=== PATIENT | female | born 1990 | race African-American/Black ===

== ENCOUNTER 2019-11-26 12:49 | Inpatient (IN) | payer MEDICAID ==
[~2019-11-26] VITALS: Ht 160 cm; Wt 78.5 kg
[2019-11-26] MEDS ORDERED: FERR325T6 PO (13:26)
[2019-11-26] MEDS ORDERED: PREN1TAB23 PO (13:26)
[2019-11-26] MEDS ORDERED: DEXT 5%/LR + PITOCIN 20UNITS/L 1,000 ML IV SCH (14:34)
[2019-11-26] MEDS ORDERED: MISOPROSTOL 100MCG TABLET VG SCH (14:45)
[2019-11-26] MEDS ORDERED: BUTORPHANOL TARTRATE 2 MG/ML VIAL IV PRN (14:45)
[2019-11-26] MEDS ORDERED: LIDOCAINE HCL 1% 20ML VIAL (Pyxis) INJ INFIL SCH (14:45)
[2019-11-26] MEDS ORDERED: NALOXONE HCL 0.4 MG/ML 1ML VIAL IM PRN (14:45)
[2019-11-26] MEDS ORDERED: PENICILLIN G POTASSIUM 2.5 MMU in DEXTROSE 5% WATER 50 ML IV SCH (15:00)
[2019-11-26] MEDS: LACTATED RINGERS 1,000 ML IV SCH ×3 (15:08→20:14)
[2019-11-26] MEDS ORDERED: PENICILLIN G POTASSIUM 5 MMU in DEXT 5% WATER 100 ML IV SCH (15:30)
[2019-11-26 15:33] LABS: CLARITY URINE CLOUDY (CLEAR); COLOR URINE YELLOW (YELLOW); KETONES URINE NEGATIVE (NEGATIVE); LEUKOCYTE ESTERASE URINE 3+ (NEGATIVE); NITRITE URINE NEGATIVE (NEGATIVE); OCCULT BLOOD URINE 1+ (NEGATIVE); PH URINE 8.5 (4.5-8.0); PROTEIN URINE TRACE (NEGATIVE); SPECIFIC GRAVITY URINE 1.016 (1.005-1.030)
[2019-11-26 15:38] LABS: HEMATOCRIT. 37.4 % (36.0-48.0); HEMOGLOBIN. 12.2 g/dL (12.0-16.0); MEAN CORPUSCULAR HEMOGLOBIN 28.7 pg (28.0-32.0); MEAN PLATELET VOLUME 9.6 fl (7.4-10.4); PLATELET 164 x1000/uL (130-400); RED BLOOD CELL COUNT 4.25 mill/uL (4.2-5.4); RED CELL DISTRIBUTION WIDTH 13.6 % (11.6-14.6)
[2019-11-26 15:44] LABS: INR 0.9; PARTIAL THROMBOPLASTIN TIME 28.2 sec (23.4-31.0); PROTHROMBIN TIME 9.8 sec (9.6-11.0)
[2019-11-26 15:59] LABS: *AMPHETAMINES SCREEN URINE NEGATIVE (NEGATIVE); *BARBITURATES SCREEN URINE NEGATIVE (NEGATIVE); *BENZODIAZEPINES SCREEN URINE NEGATIVE (NEGATIVE)
[2019-11-26 16:00] LABS: *COCAINE SCREEN URINE NEGATIVE (NEGATIVE); CANNABINOID URINE SCREEN NEGATIVE (NEGATIVE); METHADONE URINE SCREEN NEGATIVE (NEGATIVE); OPIATES URINE SCREEN NEGATIVE (NEGATIVE); PHENCYCLIDINE URINE SCREEN NEGATIVE (NEGATIVE)
[2019-11-26 16:26] LABS: PLATELET ESTIMATE NORMAL
[2019-11-26 16:32] LABS: HEPATITIS B SURFACE ANTIGEN NEGATIVE
[2019-11-26] MEDS ORDERED: ROPIVACAINE HCL/PF EPIDURAL 200 ML EPI SCH (19:33)
[2019-11-27] MEDS ORDERED: HEMORRHOIDAL SUPP PR PRN
[2019-11-27] MEDS ORDERED: IBUPROFEN 400MG TABLET PO PRN
[2019-11-27] MEDS ORDERED: BISACODYL 10MG SUPP PR PRN
[2019-11-27] MEDS ORDERED: GLYCERIN/WITCH HAZEL LEAF MEDICATED PAD TOP PRN
[2019-11-27] MEDS ORDERED: LANOLIN OINT 7GM TUBE TOP PRN
[2019-11-27] MEDS ORDERED: ACETAMINOPHEN WITH CODEINE 300/30MG TABLET PO PRN
[2019-11-27] MEDS ORDERED: DEXT 5%/LR + PITOCIN 20UNITS/L 1,000 ML IV SCH
[2019-11-27] MEDS ORDERED: MEPERIDINE HCL/PF 50MG/ML CPJ IV NR (00:15)
[2019-11-27 02:10] VITALS: BP 112/62
[2019-11-27 04:00] VITALS: BP 110/65
[2019-11-27 07:32] VITALS: BP 112/69
[2019-11-27] MEDS: SIMETHICONE 80MG TABLET CHEW PO SCH ×3 (08:19→20:47)
[2019-11-27] MEDS: PRENATAL VIT/FE FUMARATE/FA TABLET PO SCH (08:19)
[2019-11-27] MEDS: MAGNESIUM/ALUMINUM HYDROXIDE/SIMETHICONE 30ML UDC PO SCH ×3 (08:19→20:47)
[2019-11-27 17:14] VITALS: BP 106/59
[2019-11-27 19:30] VITALS: BP 109/58
[2019-11-27] MEDS: IBUPROFEN 800MG TABLET PO PRN (20:46)
[2019-11-27] MEDS ORDERED: DOCUSATE SODIUM 100MG CAPSULE PO SCH (21:00)
[2019-11-28 04:00] VITALS: BP 98/57
[2019-11-28] MEDS ORDERED: IBUP-2030 PO (07:02)
[2019-11-28 07:16] LABS: HEMATOCRIT. 26.8 % (36.0-48.0); MEAN CORPUSCULAR HEMOGLOBIN 29.3 pg (28.0-32.0); MEAN CORPUSCULAR VOLUME 87.7 fL (81.0-99.0); MEAN PLATELET VOLUME 9.5 fl (7.4-10.4); PLATELET 152 x1000/uL (130-400); RED BLOOD CELL COUNT 3.06 mill/uL (4.2-5.4); RED CELL DISTRIBUTION WIDTH 13.6 % (11.6-14.6)
[2019-11-28] MEDS ORDERED: FERROUS SULFATE 325MG TABLET PO SCH (07:30)
[2019-11-28] MEDS: MAGNESIUM/ALUMINUM HYDROXIDE/SIMETHICONE 30ML UDC PO SCH (08:19)
[2019-11-28] MEDS: SIMETHICONE 80MG TABLET CHEW PO SCH (08:19)
[2019-11-28 08:20] VITALS: BP 105/66
[2019-11-28] MEDS: PRENATAL VIT/FE FUMARATE/FA TABLET PO SCH (08:20)
[2019-11-28] MEDS: IBUPROFEN 800MG TABLET PO PRN (08:20)
[2019-11-28 15:10] LABS: PLATELET ESTIMATE NORMAL
== END 2019-11-28 12:50 | disposition home or self-care (01) | DRG 560 ==
LOC: OBSVTOIN 12:49 → 8 EST LDRP 12:49 → 8EST 11-27 02:10
PROVIDERS: ADMIT Obstetrics & Gynecology; ATTEND Obstetrics & Gynecology
PROC: 10E0XZZ Delivery of Products of Conception, External Approach (ICD-10-PCS; principal; 2019-11-27)
PROC: 3E0R3BZ Introduction of Anesthetic Agent into Spinal Canal, Percutaneous Approach (ICD-10-PCS; 2019-11-27)
PROC: 00HU33Z Insertion of Infusion Device into Spinal Canal, Percutaneous Approach (ICD-10-PCS; 2019-11-27)
DX: O80 Encounter for full-term uncomplicated delivery (principal); Z37.0 Single live birth; Z3A.37 37 weeks gestation of pregnancy
CPT/HCPCS: 36415; 80305; 81003; 85025; 86592; 86703; 86762; 86850; 86900; 87340; 99281; J2175; J2540; J2590; J2795; J7060; J7120

== ENCOUNTER 2020-08-19 02:50 | Emergency (ER) | payer MEDICAID, OTHER ==
[~2020-08-19] VITALS: Ht 162.6 cm; Wt 60.0 kg
[~2020-08-19 02:50] MED LIST: FERR325T6 PO; IBUP-2030 PO; PREN1TAB23 PO
[2020-08-19] MEDS ORDERED: AZITHROMYCIN 500 MG TABLET PO ONE (04:15)
[2020-08-19] MEDS ORDERED: LIDOCAINE HCL 1% 20ML VIAL (Pyxis) INJ INFIL ONE (04:15)
[2020-08-19] MEDS ORDERED: CEFTRIAXONE SODIUM 500 MG/VIAL IM ONE (04:15)
[2020-08-19 05:00] VITALS: BP 121/80
[2020-08-19 05:11] LABS: CLARITY URINE CLEAR (CLEAR); COLOR URINE YELLOW (YELLOW); KETONES URINE TRACE (NEGATIVE); LEUKOCYTE ESTERASE URINE NEGATIVE (NEGATIVE); NITRITE URINE NEGATIVE (NEGATIVE); OCCULT BLOOD URINE NEGATIVE (NEGATIVE); PH URINE 6.5 (4.5-8.0); PROTEIN URINE NEGATIVE (NEGATIVE); SPECIFIC GRAVITY URINE 1.029 (1.005-1.030)
== END 2020-08-19 05:21 | disposition home or self-care (01) ==
LOC: ER 02:50
DX: J98.8 Other specified respiratory disorders (principal); N76.0 Acute vaginitis; Z20.822 Contact with and (suspected) exposure to COVID-19
CPT/HCPCS: 81003; 81025; 93005; 96372; 99284; C9803; J0696; J3490; U0003

== ENCOUNTER 2022-01-13 17:14 | Inpatient (IN) | payer MEDICAID, OTHER ==
[~2022-01-13] VITALS: Ht 165.1 cm; Wt 67.6 kg
[2022-01-13] MEDS ORDERED: NALOXONE HCL 0.4 MG/ML 1ML VIAL IM PRN (17:30)
[2022-01-13] MEDS ORDERED: CARBOPROST TROMETHAMINE 250 MCG/ML AMPUL IM PRN (17:30)
[2022-01-13] MEDS ORDERED: LIDOCAINE HCL 1% 10 MG/ML 10ML VIAL IJ SCH (17:30)
[2022-01-13] MEDS ORDERED: LACTATED RINGERS 1,000 ML IV SCH (17:30)
[2022-01-13] MEDS ORDERED: DEXT 5%/LR + PITOCIN 20UNITS/L 1,000 ML IV SCH (17:30)
[2022-01-13] MEDS ORDERED: MISOPROSTOL 200MCG TABLET VG SCH (17:30)
[2022-01-13] MEDS ORDERED: METHYLERGONOVINE MALEATE 0.2 MG/ML IM PRN (17:30)
[2022-01-13] MEDS ORDERED: BUTORPHANOL TARTRATE 2 MG/ML VIAL IV PRN (17:30)
[2022-01-13] MEDS ORDERED: LANOLIN OINT 7GM TUBE TOP PRN (18:30)
[2022-01-13] MEDS ORDERED: IBUPROFEN 400MG TABLET PO PRN (18:30)
[2022-01-13] MEDS ORDERED: RHO(D) IMMUNE GLOBULIN 300 MCG/SYR IM PRN (18:30)
[2022-01-13] MEDS: IBUPROFEN 800MG TABLET PO PRN (18:34)
[2022-01-13 18:45] LABS: BASOPHILS % 0.3 % (0.0-2.0); EOSINOPHILS % 0.3 % (0.0-5.0); HEMATOCRIT. 36.2 % (36.0-48.0); HEMOGLOBIN. 11.6 g/dL (12.0-16.0); LYMPHOCYTES % 19.5 % (20.0-50.0); MEAN CORPUSCULAR HEMOGLOBIN 28.1 pg (28.0-32.0); MEAN CORPUSCULAR VOLUME 87.8 fL (81.0-99.0); MEAN PLATELET VOLUME 10.5 fl (7.4-10.4); MONOCYTES % 6.7 % (2.0-8.0); NEUTROPHILS % 73.2 % (40.0-76.0); PLATELET 179 x1000/uL (130-400); RED BLOOD CELL COUNT 4.13 mill/uL (4.2-5.4); RED CELL DISTRIBUTION WIDTH 12.8 % (11.6-14.6)
[2022-01-13 18:57] LABS: INR 0.9; PARTIAL THROMBOPLASTIN TIME 23.6 sec (23.4-31.0); PROTHROMBIN TIME 9.9 sec (9.6-11.0)
[2022-01-13 19:34] LABS: HEPATITIS B SURFACE ANTIGEN NEGATIVE
[2022-01-13] MEDS: DEXT 5%/LR + PITOCIN 20UNITS/L 1,000 ML IV SCH (19:47)
[2022-01-13 23:00] LABS: CLARITY URINE CLOUDY (CLEAR); COLOR URINE RED (YELLOW); KETONES URINE NEGATIVE (NEGATIVE); LEUKOCYTE ESTERASE URINE 2+ (NEGATIVE); NITRITE URINE NEGATIVE (NEGATIVE); OCCULT BLOOD URINE 3+ (NEGATIVE); PROTEIN URINE 1+ (NEGATIVE); SPECIFIC GRAVITY URINE 1.016 (1.005-1.030)
[2022-01-13 23:05] LABS: *AMPHETAMINES SCREEN URINE NEGATIVE (NEGATIVE); *BARBITURATES SCREEN URINE NEGATIVE (NEGATIVE); *BENZODIAZEPINES SCREEN URINE NEGATIVE (NEGATIVE); *COCAINE SCREEN URINE NEGATIVE (NEGATIVE); CANNABINOID URINE SCREEN NEGATIVE (NEGATIVE); METHADONE URINE SCREEN NEGATIVE (NEGATIVE); OPIATES URINE SCREEN NEGATIVE (NEGATIVE); PHENCYCLIDINE URINE SCREEN NEGATIVE (NEGATIVE)
[2022-01-14] MEDS: IBUPROFEN 800MG TABLET PO PRN ×3 (03:18→16:26)
[2022-01-14 04:00] VITALS: BP 112/61
[2022-01-14] MEDS: DEXT 5%/LR + PITOCIN 20UNITS/L 1,000 ML IV SCH (06:16)
[2022-01-14 07:17] LABS: BASOPHILS % 0.2 % (0.0-2.0); EOSINOPHILS % 0.6 % (0.0-5.0); HEMATOCRIT. 32.1 % (36.0-48.0); HEMOGLOBIN. 10.4 g/dL (12.0-16.0); LYMPHOCYTES % 12.4 % (20.0-50.0); MEAN CORPUSCULAR HEMOGLOBIN 28.4 pg (28.0-32.0); MEAN CORPUSCULAR VOLUME 87.2 fL (81.0-99.0); MEAN PLATELET VOLUME 10.6 fl (7.4-10.4); MONOCYTES % 8.7 % (2.0-8.0); NEUTROPHILS % 78.1 % (40.0-76.0); PLATELET 145 x1000/uL (130-400); RED BLOOD CELL COUNT 3.68 mill/uL (4.2-5.4); RED CELL DISTRIBUTION WIDTH 12.8 % (11.6-14.6)
[2022-01-14 07:30] VITALS: BP 104/61
[2022-01-14] MEDS: PRENATAL VIT/FE FUMARATE/FA TABLET PO SCH (08:54)
[2022-01-14 16:00] VITALS: BP 106/64
[2022-01-14] MEDS ORDERED: BISACODYL 10MG SUPP PR NR (19:15)
[2022-01-14 20:00] VITALS: BP 109/72
[2022-01-15] MEDS: IBUPROFEN 800MG TABLET PO PRN (02:18)
[2022-01-15 05:47] VITALS: BP 104/63
[2022-01-15] MEDS: PRENATAL VIT/FE FUMARATE/FA TABLET PO SCH (07:52)
[2022-01-15 08:02] VITALS: BP 111/64
== END 2022-01-15 14:15 | disposition home or self-care (01) | DRG 560 ==
LOC: 8 EST LDRP 17:14 → OBSVTOIN 17:15 → 8EST 01-14 06:30
PROVIDERS: ADMIT Obstetrics & Gynecology; ATTEND Obstetrics & Gynecology
PROC: 10E0XZZ Delivery of Products of Conception, External Approach (ICD-10-PCS; principal; 2022-01-15)
DX: O99.02 Anemia complicating childbirth (principal); Z37.0 Single live birth; D64.9 Anemia, unspecified; Z3A.38 38 weeks gestation of pregnancy; Z20.822 Contact with and (suspected) exposure to COVID-19
CPT/HCPCS: 36415; 80305; 81003; 85025; 86592; 86703; 86762; 86850; 86900; 87340; 87426; G0378; J2590; J3490; J7120

== ENCOUNTER 2023-11-29 20:03 | Emergency (ER) | payer MEDICAID ==
[~2023-11-29] VITALS: Ht 162.6 cm; Wt 51.3 kg
[2023-11-29 20:14] VITALS: O2SAT 100
[2023-11-29 20:55] LABS: CLARITY URINE CLEAR (CLEAR); COLOR URINE YELLOW (YELLOW); GLUCOSE URINE NEGATIVE (NEGATIVE); KETONES URINE NEGATIVE (NEGATIVE); LEUKOCYTE ESTERASE URINE TRACE (NEGATIVE); NITRITE URINE NEGATIVE (NEGATIVE); OCCULT BLOOD URINE 1+ (NEGATIVE); PH URINE 7.5 (4.5-8.0); PROTEIN URINE NEGATIVE (NEGATIVE); SPECIFIC GRAVITY URINE 1.027 (1.005-1.030)
[2023-11-29 21:09] LABS: BACTERIA URINE 1+; SQUAMOUS EPITHELIAL CELL URINE 1+ /lpf (RARE/1+); WBC URINE 0-2 /hpf (0-2)
[2023-11-29 21:20] LABS: BASOPHILS % 0.9 % (0.0-2.0); EOSINOPHILS % 2.1 % (0.0-5.0); HEMATOCRIT. 35.6 % (36.0-48.0); HEMOGLOBIN. 11.6 g/dL (12.0-16.0); LYMPHOCYTES % 35.4 % (20.0-50.0); MEAN CORPUSCULAR HEMOGLOBIN 28.7 pg (28.0-32.0); MEAN CORPUSCULAR HGB CONC 32.5 g/dL (31.0-37.0); MEAN CORPUSCULAR VOLUME 88.2 fL (81.0-99.0); MEAN PLATELET VOLUME 8.7 fl (7.4-10.4); MONOCYTES % 8.6 % (2.0-8.0); PLATELET 235 x1000/uL (130-400); RED BLOOD CELL COUNT 4.03 mill/uL (4.2-5.4); RED CELL DISTRIBUTION WIDTH 13.7 % (11.6-14.6); WHITE BLOOD COUNT 6.4 x1000/uL (4.5-11.0)
[2023-11-29 21:27] LABS: CARBON DIOXIDE 26 mEq/L (21-32); CHLORIDE 108 mEq/L (98-107); POTASSIUM 4.5 mEq/L (3.5-5.1); SODIUM 139 mEq/L (136-145)
[2023-11-29 21:28] LABS: CALCIUM 8.7 mg/dL (8.7-10.4)
[2023-11-29 21:33] LABS: CREATININE 0.7 mg/dL (0.6-1.0); GLUCOSE 85 mg/dL (70-105); UREA NITROGEN BLOOD 16 mg/dL (9-23)
[2023-11-29 21:34] LABS: ALANINE AMINOTRANSFERASE 30 IU/L (10-49)
[2023-11-29 21:35] LABS: ASPARTATE AMINOTRANSFERASE 24 IU/L (<34); BILIRUBIN TOTAL 0.4 mg/dL (0.1-1.0); PROTEIN TOTAL 6.9 g/dL (6.0-8.3)
[2023-11-29 21:46] LABS: B-HCG QUANTITATIVE 1037 mIU/mL (<3)
[2023-11-29 23:36] VITALS: BP 108/76; PULSE 88; RESP 14; TEMP 97.3
== END 2023-11-29 23:38 | disposition home or self-care (01) ==
LOC: ER 20:03
DX: O34.81 Maternal care for other abnormalities of pelvic organs, first trimester (principal); N83.202 Unspecified ovarian cyst, left side; Z3A.01 Less than 8 weeks gestation of pregnancy
CPT/HCPCS: 36415; 76801; 80053; 81003; 81025; 84702; 85025; 86850; 86900; 99284

== ENCOUNTER 2024-06-26 14:08 | Emergency (ER) | payer MEDICAID ==
[~2024-06-26] VITALS: Ht 167.6 cm; Wt 75.0 kg
[2024-06-26 14:15] VITALS: O2SAT 99
[2024-06-26 16:16] VITALS: BP 120/65; PULSE 91; RESP 16; TEMP 36.61404; O2SAT 100
== END 2024-06-26 16:40 | disposition home or self-care (01) ==
LOC: ER 14:08
DX: O34.32 Maternal care for cervical incompetence, second trimester (principal); O26.892 Other specified pregnancy related conditions, second trimester; M79.642 Pain in left hand; M25.532 Pain in left wrist; Z3A.25 25 weeks gestation of pregnancy; V49.59XA Passenger injured in collision with other motor vehicles in traffic accident, initial encounter; Y93.89 Activity, other specified; Y92.89 Other specified places as the place of occurrence of the external cause; Y99.8 Other external cause status
CPT/HCPCS: 73110; 73130; 76815; 99291